=== PATIENT | female | born 1940 | race Caucasian/White ===

== ENCOUNTER → 2024-11-12 11:24 | Outpatient (REF) | payer OTHER, MEDICARE, SELFPAY ==
[2024-11-12 13:04] LABS: % Basophils 0.4 % (0-2); % Eosinophils 1.6 % (0-6); % Immature Granulocytes 0.7 % (0-0.5); % Lymphocytes 15.8 % (20.5-51.1); % Monocytes 7.6 % (1.7-9.3); % Neutrophils 73.9 % (42.2-75.2); Absolute Eosinophils 0.1 10^3/uL (0-0.7); Absolute Lymphocytes 0.9 10^3/uL (1.2-3.4); Absolute Monocytes 0.4 10^3/uL (0.1-0.6); Absolute Neutrophils 4.2 10^3/uL (1.4-6.5); Hematocrit 22.4 % (37.0-47.0); Hemoglobin 7.4 g/dL (12.0-16.0); Mean Corpuscular Hgb 33.5 pg (27.0-31.0); Mean Corpuscular Volume 101.4 fL (81.0-99.0); Mean Platelet Volume 9.6 fL (7.4-10.4); Nucleated Red Blood Cells % 0 %; Platelet Count 247 10^3/uL (130-400); Red Blood Cell Count 2.21 10^6/uL (4.20-5.40); Red Cell Dist. Width 21.2 % (11.5-14.5); White Blood Cell Count 5.7 10^3/uL (4.8-10.8)
[2024-11-12 13:05] LABS: ALT (SGPT) 15 U/L (0-35); AST (SGOT) 28 U/L (14-36); Alkaline Phosphatase 128 U/L (38-126); Blood Urea Nitrogen 14 mg/dl (7-17); Calcium 9.3 mg/dl (8.4-10.2); Carbon Dioxide 24 mmol/L (22-30); Chloride 101 mmol/L (98-107); Glucose 97 mg/dl (70-99); Magnesium 1.7 mg/dl (1.6-2.3); Potassium 4.1 mmol/L (3.5-5.1); Sodium 132 mmol/L (135-145); Total Bilirubin 1.2 mg/dl (0.2-1.3); Total Protein 5.7 g/dl (6.3-8.2); eGFR 55.55
[2024-11-12 13:19] LABS: Free T4 0.93 ng/dl (0.78-2.19)
[2024-11-12 13:32] LABS: TSH 8.12 uIU/ml (0.47-4.68)
== END ==
LOC: OLABN 11:24
PROVIDERS: ATTENDING PHYSICIAN Student in an Organized Health Care Education/Training Program
DX: E03.9 Hypothyroidism, unspecified (principal); N18.31 Chronic kidney disease, stage 3a; Z79.899 Other long term (current) drug therapy; I10 Essential (primary) hypertension; D64.9 Anemia, unspecified
CPT/HCPCS: 36415; 80053; 83735; 84439; 84443; 85025

== ENCOUNTER → 2024-11-17 11:27 | Outpatient (REF) | payer OTHER, MEDICARE, SELFPAY ==
[2024-11-17 12:12] LABS: % Basophils 0.4 % (0-2); % Eosinophils 0.7 % (0-6); % Immature Granulocytes 0.7 % (0-0.5); % Lymphocytes 22.8 % (20.5-51.1); % Monocytes 10.2 % (1.7-9.3); % Neutrophils 65.2 % (42.2-75.2); Absolute Lymphocytes 1.3 10^3/uL (1.2-3.4); Absolute Monocytes 0.6 10^3/uL (0.1-0.6); Absolute Neutrophils 3.7 10^3/uL (1.4-6.5); Hematocrit 21.3 % (37.0-47.0); Hemoglobin 7.2 g/dL (12.0-16.0); Mean Corp Hgb Conc. 33.8 g/dL (33.0-37.0); Mean Corpuscular Hgb 33.5 pg (27.0-31.0); Mean Corpuscular Volume 99.1 fL (81.0-99.0); Mean Platelet Volume 9.7 fL (7.4-10.4); Nucleated Red Blood Cells % 0 %; Platelet Count 248 10^3/uL (130-400); Red Blood Cell Count 2.15 10^6/uL (4.20-5.40); Red Cell Dist. Width 21.2 % (11.5-14.5); White Blood Cell Count 5.7 10^3/uL (4.8-10.8)
[2024-11-17 12:30] LABS: ALT (SGPT) 14 U/L (0-35); AST (SGOT) 25 U/L (14-36); Albumin 3.4 g/dl (3.5-5.0); Alkaline Phosphatase 138 U/L (38-126); Blood Urea Nitrogen 24 mg/dl (7-17); Calcium 9.1 mg/dl (8.4-10.2); Carbon Dioxide 22 mmol/L (22-30); Chloride 103 mmol/L (98-107); Glucose 98 mg/dl (70-99); Potassium 4.6 mmol/L (3.5-5.1); Sodium 132 mmol/L (135-145); Total Bilirubin 1.1 mg/dl (0.2-1.3); Total Protein 6.4 g/dl (6.3-8.2); eGFR 49.55
== END ==
LOC: OLABN 11:27
PROVIDERS: ATTENDING PHYSICIAN Student in an Organized Health Care Education/Training Program
DX: S08.12 Partial traumatic amputation of ear (principal)
CPT/HCPCS: 36415; 80053; 85025

== ENCOUNTER → 2024-11-27 08:59 | Outpatient (REF) | payer OTHER, MEDICARE, SELFPAY ==
[2024-11-28 23:49] LABS: CA 27-29 759.8 U/mL (<=39.0)
[2024-11-29 02:18] LABS: CA 15-3 Breast Antigens 206 U/mL (0-31)
== END ==
LOC: OLABN 08:59
PROVIDERS: ATTENDING PHYSICIAN Student in an Organized Health Care Education/Training Program
DX: C50.812 Malignant neoplasm of overlapping sites of left female breast (principal)
CPT/HCPCS: 36415; 86300

== ENCOUNTER 2024-12-08 15:36 | Emergency (ER) | payer MEDICARE, OTHER, SELFPAY ==
[2024-12-08] VITALS (18 sets, daily range): BP systolic 107–141; BP diastolic 55–74; BMI 27.5
--- NOTE | 2024-12-08 15:41 | ED.GENMED ---
History of Present Illness
General
Chief Complaint: Abnormal Lab Value
Time Seen by Provider: 12/08/24 15:40
History of Present Illness
History of Present Illness:
TIME OF INITIAL ENCOUNTER: 3:40 PM
HPI:
The patient came in by [facility] from [facility]. She had a 'low hemoglobin'. She reportedly was just at [place]. The patient thought that she was going back to [place] however EMS tells us that staff at [facility] said that
they wanted her to go to [place]. She feels weak but has no other specific complaints. No shortness of breath. She denies any GI bleeding. She has an ileostomy.
EXAM:
GENERAL: The patient appears generally weak and debilitated
HEENT: Moist oral mucosa
CARDIOVASCULAR: No murmurs, normal heart rate, regular rhythm, No chest wall tenderness
PULMONARY: No respiratory distress, breath sounds are clear and equal
ABDOMEN: Soft with no peritoneal signs, no tenderness, ileostomy present, heme-negative loose brown stool
NEUROLOGIC: Fair strength all extremities, no coordination deficits
PSYCHIATRIC: Some mild cognitive deficits noted, reasonable insight and judgment
EXTREMITIES: Nontender, no edema, moves all extremities equally
SKIN: Scattered areas of ecchymosis, there is also a slowly healing wound over the central abdomen
NUMBER AND COMPLEXITY OF PROBLEMS ADDRESSED AT THE ENCOUNTER
� Chronic conditions affecting care: Breast cancer, hyperlipidemia, thrombocytopenia
� Acute Exacerbation and/or Progression of Chronic Illness: This is an acute problem
� Differential Diagnosis includes: Anemia, blood loss anemia, iron deficiency anemia
AMOUNT AND/OR COMPLEXITY OF DATA TO BE REVIEWED AND ANALYZED
� I performed an independent evaluation of and my interpretation is:
EKG:
CT:
X-rays:
Laboratory Studies: Hemoglobin is 7.1, iron is 60, ferritin is high
Other:
� Review of other/old records: No old records available for review in [facility]
� Clinical information was obtained by an independent historian: I spoke to PMD and son over the phone
� Prescriptions/Medications Considered but not given:
� Further testing considered but not performed:
RISK OF COMPLICATIONS AND/OR MORBIDITY OR MORTALITY OF PATIENT MANAGEMENT
� Social determinants of health affecting care:
� Discussion with other providers: I did obtain verbal consent from the son for blood transfusion over the phone. I also discussed case with Dr. Mitchel Valadez.
� Escalation of care including admission/observation vs risk of discharge considered: Plan initially was to give a unit of blood and discharge however she had very difficult IV access. IV team was involved, the nurse tried
ultrasound-guided access. I tried access to both EJ's and both lines blue. A right femoral vein access was attempted however the right femoral artery. Ultrasound access was obtained using left femoral vein but also required multiple times. Will
plan to give 2 units of blood and then discharged back to [facility].
ANY OTHER UPDATES:
Phy Exam
Physical Exam
Physical Exam:
See HPI
Course
Orders/Labs/Results
Orders:
Orders
12/08/24 16:34
ABO2 Urgent
BBK Wristband Number:
Associate notified that ABO2 has been ordered: CHANGED TS TO ABO2
Date: 12/08/24
Time: 17:05
Cloth Shearer ID: [id number]
Complete Blood Count/With Diff Urgent
Comprehensive Metabolic Panel Urgent
Ferritin Urgent
Iron Urgent
Total Iron Binding Urgent
12/08/24 17:00
* Blood Bank Products Urgent
Blood Bank Products: *Packed RBC Leuko(PRBC's)
Quantity: 1
Transfuse Today: Yes
Reason: Anemia
12/08/24 17:23
Type+Screen Urgent
BBK Wristband Number:
12/08/24 21:37
* Blood Bank Products Urgent
Blood Bank Products: *Packed RBC Leuko(PRBC's)
Quantity: 1
Transfuse Today: Yes
Reason: Anemia
Abnormal Lab Results
12/08/24 12/08/24
16:34 17:23
RBC 2.29 L 10^6/uL
(4.20-5.40)
Hgb 7.1 L g/dL
(12.0-16.0)
Hct 23.0 L %
(37.0-47.0)
MCV 100.4 H fL
(81.0-99.0)
MCHC 30.9 L g/dL
(33.0-37.0)
RDW 19.4 H %
(11.5-14.5)
Abs Immat Gran (auto) 0.1 H 10^3/uL
(0-0.05)
Absolute Lymphs (auto) 1.0 L 10^3/uL
(1.2-3.4)
Absolute Monos (auto) 0.7 H 10^3/uL
(0.1-0.6)
Immature Gran % 1.7 H %
(0-0.5)
Lymphocytes % 17.4 L %
(20.5-51.1)
Monocytes % 12.1 H %
(1.7-9.3)
Sodium 133 L mmol/L
(135-145)
Chloride 108 H mmol/L
(98-107)
Carbon Dioxide 15 L mmol/L
(22-30)
BUN 26 H mg/dl
(7-17)
Glucose 103 H mg/dl
(70-99)
TIBC 258 L ug/dl
(265-497)
Ferritin 2970.0 H ng/ml
(11.1-264.0)
Alkaline Phosphatase 252 H U/L
(38-126)
Albumin 3.1 L g/dl
(3.5-5.0)
Crossmatch IS Only See Detail
12/08/24 16:34
12/08/24 16:34
Vital Signs
Initial and Last Documented VS:
Initial Vital Signs
Temp Pulse Resp BP Pulse Ox
36.7 C 79 24 107/55 98
12/08/24 15:43 12/08/24 15:43 12/08/24 15:43 12/08/24 15:43 12/08/24 15:43
Last Documented Vital Signs
Temp Pulse Resp BP Pulse Ox
36.7 C 73 17 124/72 93
12/08/24 23:52 12/09/24 00:00 12/09/24 00:00 12/09/24 00:00 12/08/24 23:52
Procedures
Central Line
Left Femoral:
Indication for procedure:: Poor IV access needs blood, I did speak to son earlier who gave blood conse
Procedure completed by: Me, Dr. Alejo
Consent form signed: No
If no, reason: Emergency procedure
Central line lumen: triple
Number of attempts: 3
Sterile dressing applied?: Yes
Additional information:
Right femoral vein was also attempted but this failed initially.
*Critical Care Note
Total Time (30-74mins, 75-104mins- exclusive of procedures): Not Applicable
ED Attending Note
-
Portions of this chart may have been created with voice recognition software.� Occasional wrong word or��sound alike� substitutions may have occurred due to the inherent limitations of voice recognition software.
Discharge Plan
Departure
Patient Disposition: Home (Routine Discharge)
Date of Disposition: 12/08/24
Time of Disposition: 18:30
Patient with high blood pressure during this ER visit?: Yes
Discharge Problem:
Anemia
Referrals:
Mitchel Valadez DO [Family Provider] -
Activity Restrictions/Additional Instructions:
I did speak to Dr. Mitchel Valadez about the care. He agrees with getting a unit of blood. There is no sign of blood in your stool from your ileostomy bag. Return here if worse or other concerns.
Interventions
Interventions:
*Risk Screen - Suicide Last Done: 12/08/24 15:43
*General Assessment Last Done: 12/08/24 15:43
*Neglect/Abuse Screening Last Done: 12/08/24 15:43
*ED- Fall Risk Assessment Last Done: 12/08/24 15:43
*ED COVID-19 Vaccine History Last Done: 12/09/24 00:44
*Nursing Disposition Last Done: 12/09/24 00:44
Discharge Date and Time
Discharge Date/Time: 12/09/24 00:45
Print Language: MONGOLIAN
[2024-12-08 16:49] LABS: % Basophils 0.2 % (0-2); % Eosinophils 0.3 % (0-6); % Immature Granulocytes 1.7 % (0-0.5); % Lymphocytes 17.4 % (20.5-51.1); % Monocytes 12.1 % (1.7-9.3); % Neutrophils 68.3 % (42.2-75.2); Absolute Immature Granulocytes 0.1 10^3/uL (0-0.05); Absolute Monocytes 0.7 10^3/uL (0.1-0.6); Hemoglobin 7.1 g/dL (12.0-16.0); Mean Corp Hgb Conc. 30.9 g/dL (33.0-37.0); Mean Corpuscular Volume 100.4 fL (81.0-99.0); Mean Platelet Volume 9.3 fL (7.4-10.4); Nucleated Red Blood Cells % 0.3 %; Platelet Count 218 10^3/uL (130-400); Red Blood Cell Count 2.29 10^6/uL (4.20-5.40); Red Cell Dist. Width 19.4 % (11.5-14.5); White Blood Cell Count 5.9 10^3/uL (4.8-10.8)
[2024-12-08 17:29] LABS: ALT (SGPT) 24 U/L (0-35); AST (SGOT) 36 U/L (14-36); Albumin 3.1 g/dl (3.5-5.0); Alkaline Phosphatase 252 U/L (38-126); Blood Urea Nitrogen 26 mg/dl (7-17); Calcium 9.3 mg/dl (8.4-10.2); Carbon Dioxide 15 mmol/L (22-30); Chloride 108 mmol/L (98-107); Estimated Creatinine Clearance 38 ml/min; Glucose 103 mg/dl (70-99); Iron 60 ug/dl (37-170); Potassium 4.6 mmol/L (3.5-5.1); Sodium 133 mmol/L (135-145); Total Bilirubin 0.9 mg/dl (0.2-1.3); Total Protein 6.6 g/dl (6.3-8.2); eGFR 55.55
[2024-12-08 17:50] LABS: Percent Saturation 23 % (20-50); Total Iron Binding Capacity 258 ug/dl (265-497)
--- NOTE | 2024-12-08 21:45 | EDRN ---
Delayed entry.
Previous 22G in R forearm inserted by IV patent prior to sending down white slip to request blood. Shortly after transfusion started skin proximal to site became cool and patient c/o of increased pain. Requested ultrasound access, which also
infiltrated. First attempt for in EJ by Dr. Alejo successful, patient c/o of pain but blood infusing well. This RN checked a few minutes later and line left EJ had infiltrated. Unsuccessful attempt x2 by Dr. Alejo for an EJ. Two
attempts for the right femoral. One successful attempt by Dr. Alejo for a left femoral central line. Pressure applied to both femoral sites. Ice applied to left EJ.
--- NOTE | 2024-12-08 22:28 | EDRN ---
Delayed entry.
Previous 22G in R forearm inserted by IV team patent prior to sending down white slip to request blood. Shortly after transfusion started skin proximal to site became cool and patient c/o of increased pain. Requested ultrasound access, which also
infiltrated. First attempt for in EJ by Dr. Alejo successful, patient c/o of pain but blood infusing well. This RN checked a few minutes later and line left EJ had infiltrated. Unsuccessful attempt x1 by Dr. Alejo for an EJ. Two
attempts for the right femoral. One successful attempt by Dr. Alejo for a left femoral central line. Pressure applied to both femoral sites. Ice applied to left EJ.
[2024-12-09] VITALS: BP 124/72
== END 2024-12-09 00:45 | disposition home or self-care (01) ==
LOC: EMR 15:36
PROVIDERS: EMERGENCY PHYSICIAN Emergency Medicine; FAMILY PHYSICIAN Student in an Organized Health Care Education/Training Program
DX: R53.1 Weakness (principal); D50.9 Iron deficiency anemia, unspecified; R03.0 Elevated blood-pressure reading, without diagnosis of hypertension; E78.5 Hyperlipidemia, unspecified; D69.6 Thrombocytopenia, unspecified; Z93.2 Ileostomy status; Z85.3 Personal history of malignant neoplasm of breast; Z88.1 Allergy status to other antibiotic agents
CPT/HCPCS: 36556; 99285; 36430; 36415; 80053; 82728; 83540; 83550; 85025; 86850; 86900; 86901; 86920; P9016

== ENCOUNTER → 2024-12-11 11:22 | Outpatient (REF) | payer OTHER, MEDICARE, SELFPAY ==
[2024-12-11 12:18] LABS: Hematocrit 23.9 % (37.0-47.0); Hemoglobin 7.7 g/dL (12.0-16.0); Mean Corp Hgb Conc. 32.2 g/dL (33.0-37.0); Mean Corpuscular Hgb 31.2 pg (27.0-31.0); Mean Corpuscular Volume 96.8 fL (81.0-99.0); Mean Platelet Volume 9.9 fL (7.4-10.4); Platelet Count 195 10^3/uL (130-400); Red Blood Cell Count 2.47 10^6/uL (4.20-5.40); Red Cell Dist. Width 17.9 % (11.5-14.5); White Blood Cell Count 5.4 10^3/uL (4.8-10.8)
== END ==
LOC: OLABN 11:22
PROVIDERS: ATTENDING PHYSICIAN Student in an Organized Health Care Education/Training Program
DX: D64.9 Anemia, unspecified (principal)
CPT/HCPCS: 36415; 85027

== ENCOUNTER → 2024-12-18 11:44 | Outpatient (REF) | payer OTHER, MEDICARE, SELFPAY ==
[2024-12-18 12:05] LABS: Hematocrit 21.8 % (37.0-47.0); Hemoglobin 7.1 g/dL (12.0-16.0); Mean Corp Hgb Conc. 32.6 g/dL (33.0-37.0); Mean Corpuscular Volume 98.2 fL (81.0-99.0); Mean Platelet Volume 9.2 fL (7.4-10.4); Platelet Count 254 10^3/uL (130-400); Red Blood Cell Count 2.22 10^6/uL (4.20-5.40); Red Cell Dist. Width 17.5 % (11.5-14.5); White Blood Cell Count 5.9 10^3/uL (4.8-10.8)
== END ==
LOC: OLABN 11:44
PROVIDERS: ATTENDING PHYSICIAN Student in an Organized Health Care Education/Training Program
DX: D64.9 Anemia, unspecified (principal)
CPT/HCPCS: 36415; 85027

== ENCOUNTER 2024-12-20 17:42 | Inpatient (IN) | payer MEDICARE, OTHER, SELFPAY ==
[2024-12-20] VITALS (14 sets, daily range): BP systolic 98–132; BP diastolic 60–81
--- NOTE | 2024-12-20 12:49 | ED.GENMED ---
History of Present Illness
<Monisha Mcdaniels PA-C - Last Filed: 12/20/24 17:24>
General
Chief Complaint: Abnormal Lab Value
Source: patient, family and ambulance crew
Exam Limitations: none
Time Seen by Provider: 12/20/24 12:49
Nursing documentation reviewed up to this point in time: agreed with
History of Present Illness
History of Present Illness:
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
which is her nursing facility for evaluation of anemia. Patient reports that she had blood work drawn this morning and that it resulted with a hemoglobin of 6.6 therefore the patient was sent to the emergency department for a blood transfusion.
Patient and her peampxov-ys-vay report that the patient has been dealing with anemia and has required blood transfusions with the last being here at [facility] in the emergency department [place] approximately 2 weeks ago. Patient reports
that she is fatigued and deconditioned. Patient denies any bleeding from anywhere that she is aware of. Patient denies any chest pain, shortness of breath, abdominal pain, vomiting. Patient reports that the stool in her bag has been brown.
Past History
<Monisha Mcdaniels PA-C - Last Filed: 12/20/24 17:24>
Past History
ED Past Medical History: Cancer, CVA, GERD, Hypercholesterolemia, Hypothyroidism and Other (anemia)
ED Past Surgical History: Bowel resection (with ileostomy)
Social History
Tobacco: Non-smoker
Alcohol: None
Drug: None
Review of Systems
<Monisha Mcdaniels PA-C - Last Filed: 12/20/24 17:24>
Review of Systems
Allergies reviewed?: Yes
All Other Systems: ROS reviewed and negative except as documented in HPI and ROS
Constitutional: Reports fatigue; Denies fever
EENT: Reports no symptoms
Respiratory: Reports no symptoms
Cardiac: Reports no symptoms
ABD/GI: Reports no symptoms
: Reports no symptoms
Musculoskeletal: Reports no symptoms
Skin: Reports no symptoms
Neurological: Reports no symptoms
Endocrine: Reports no symptoms
Hematologic/Lymphatic: Reports no symptoms
Psychiatric: Reports no symptoms
Phy Exam
<Monisha Mcdaniels PA-C - Last Filed: 12/20/24 17:24>
General Physical Exam
General Presentation: well appearing and no apparent distress
General Skin: warm and dry
General Habitus: normal
General Mental: alert
General Hydration: appears well hydrated
ENT Exam
ENT Exam: EOMI, pharynx normal, neck supple and normocephalic
Eye Exam
Eye Exam: PERRL, cornea clear and conjunctiva normal
Cardiovascular Exam
Cardiovascular Exam: regular rate/rhythm, no edema, no murmur and normal peripheral pulses
Pulmonary Exam
Pulmonary Exam: lungs clear, no respiratory distress, no rales, no crackles, no rhonchi, no stridor, no wheezing and no cough
Gastrointestinal Exam
Gastrointestinal Exam: normal bowel sounds, non tender, soft, no organomegaly, no pulsatile mass and non distended
External Findings: ileostomy (with brown-black stool and bright red blood which is heme occult positive)
Neurological Exam
Neurological Exam: alert, oriented x3, no motor deficits and speech normal
Musculoskeletal Exam
Musculoskeletal Exam: full ROM and no edema
Skin Exam
Skin Exam: normal color, warm/dry, no rash and no petechia
Psychiatric Exam
Psychiatric Exam: normal mood/affect
Course
<Monisha Mcdaniels PA-C - Last Filed: 12/20/24 17:24>
Orders/Labs/Results
Orders:
Orders
12/20/24 Breakfast
Clear Liquid
At Your Request: Full Participation
12/20/24 12:56
Type And Crossmatch [Type+Screen] Urgent
Complete Blood Count/With Diff Urgent
Comprehensive Metabolic Panel Urgent
PTT Urgent
Prothrombin Time Urgent
12/20/24 15:12
* Blood Bank Products Urgent
Blood Bank Products: *Packed RBC Leuko(PRBC's)
Quantity: 1
Transfuse Today: Yes
Reason: Anemia
12/20/24 16:11
CT Abd/pelvis W Iv Cont Urgent
Comment:
Reason For Exam: anemia,hemicolectomy w/ileostomy, blood in ostomy
12/20/24 16:46
Admit/Transfer Patient As Directed
Co-Sign Provider:
Level of Care: Inpatient admission
Assign to:: Medical/Surgical
Physician / Group: bettina
Diagnosis: GI bleed
Reason for Hospitalization: GI bleed
Expected length of stay greater than two midnights?: Yes
ELOS- Estimated Length of Stay in days: 3
I certify the patient meets the requirements for IP care: Yes
12/20/24 16:47
PRN Pain Medication Management As Directed
May give lesser potent ordered pain med per pt: Yes
preference::
Protocol:: Medication orders for pain may be administered in a
manner that supports deferring to patient preference
when the pt is:
- Requesting an ordered lesser potent pain medication.
Least to most potent pain medications are defined
as: acetaminophen < NSAID < tramadol < opioids
(morphine, oxycodone, hydromorphone).
- Requesting a lesser dose of the same medication IF
ORDERED.
- Requesting a less intrusive route of administration
if both routes are prescribed by the provider (PO <
IV).
12/20/24 16:48
Code Status As Directed
Resuscitation Status: Do not resuscitate
Reached after discussion with pt or family/Healthcare POA: Yes
DNR Bracelet Application ONCE
12/20/24 18:52
Lorazepam [Ativan] 0.5 mg PO HS PRN
12/20/24 18:52
GASTROINTESTINAL CONSULT Routine
Consulting Provider: Lucrecia Mckeon
Was physician already notified: Yes
Activity As Directed
Activity Level: As Tolerated
INT (Intravenous Needle Therapy) As Directed
Comment: Place 2 IV catheters of the largest bore possible until stable
Orthostatic Vital Signs As Directed
Orthostatic VS Frequency: Now
Comment: then every four hours for twenty-four hours
Pneumatic Compression Sleeves As Directed
Type: Thigh high
Vital Signs As Directed
Frequency: Per unit guidelines
DX Deep Vein Thrombosis Video Routine
12/20/24 19:00
H&H Q6H
12/20/24 20:00
Pantoprazole [Protonix IV] 40 mg IV BID
12/21/24 01:00
H&H Q6H
12/21/24 06:00
Basic Metabolic Panel IN AM
Complete Blood Count/No Diff IN AM
Levothyroxine [Synthroid] 88 mcg PO DAILY@0600
12/21/24 07:00
H&H Q6H
12/21/24 08:00
Atorvastatin [Lipitor] 40 mg PO DAILY
Fluoxetine HCl [Prozac] 20 mg PO DAILY
Furosemide [Lasix] 20 mg PO DAILY
Dfxblcavm-Hkw-Xwzh [Femara] 2.5 mg PO DAILY
Vit C/Vit E/Lutein/Min/[place]-3 [Ocuvite Softgel] 1 cap PO DAILY
12/22/24 06:00
Basic Metabolic Panel IN AM
12/23/24 06:00
Basic Metabolic Panel IN AM
12/24/24 06:00
Basic Metabolic Panel IN AM
Abnormal Lab Results
12/20/24
12:56
RBC 2.36 L 10^6/uL
(4.20-5.40)
Hgb 7.4 L g/dL
(12.0-16.0)
Hct 22.4 L %
(37.0-47.0)
MCH 31.4 H pg
(27.0-31.0)
RDW 17.9 H %
(11.5-14.5)
Immature Gran % 0.6 H %
(0-0.5)
Monocytes % 9.8 H %
(1.7-9.3)
PT 15.4 H Sec
(11.4-14.6)
Chloride 109 H mmol/L
(98-107)
BUN 30 H mg/dl
(7-17)
Creatinine 1.1 H mg/dL
(0.6-1.0)
Alkaline Phosphatase 174 H U/L
(38-126)
Albumin 3.1 L g/dl
(3.5-5.0)
Crossmatch IS Only See Detail
12/20/24 12:56
12/20/24 12:56
Vital Signs
Initial and Last Documented VS:
Initial Vital Signs
Temp Pulse Resp BP
36.4 C 69 20 111/70
12/20/24 12:41 12/20/24 12:41 12/20/24 12:41 12/20/24 12:41
Last Documented Vital Signs
Temp Pulse Resp BP Pulse Ox
36.8 C 77 16 123/74 98
12/20/24 18:55 12/20/24 18:55 12/20/24 18:55 12/20/24 18:55 12/20/24 18:55
<Rome Brennan MD - Last Filed: 12/20/24 19:43>
Orders/Labs/Results
Orders:
Orders
12/20/24 Breakfast
Clear Liquid
At Your Request: Full Participation
12/20/24 12:56
Type And Crossmatch [Type+Screen] Urgent
Complete Blood Count/With Diff Urgent
Comprehensive Metabolic Panel Urgent
PTT Urgent
Prothrombin Time Urgent
12/20/24 15:12
* Blood Bank Products Urgent
Blood Bank Products: *Packed RBC Leuko(PRBC's)
Quantity: 1
Transfuse Today: Yes
Reason: Anemia
12/20/24 16:11
CT Abd/pelvis W Iv Cont Urgent
Comment:
Reason For Exam: anemia,hemicolectomy w/ileostomy, blood in ostomy
12/20/24 16:46
Admit/Transfer Patient As Directed
Co-Sign Provider:
Level of Care: Inpatient admission
Assign to:: Medical/Surgical
Physician / Group: bettina
Diagnosis: GI bleed
Reason for Hospitalization: GI bleed
Expected length of stay greater than two midnights?: Yes
ELOS- Estimated Length of Stay in days: 3
I certify the patient meets the requirements for IP care: Yes
12/20/24 16:47
PRN Pain Medication Management As Directed
May give lesser potent ordered pain med per pt: Yes
preference::
Protocol:: Medication orders for pain may be administered in a
manner that supports deferring to patient preference
when the pt is:
- Requesting an ordered lesser potent pain medication.
Least to most potent pain medications are defined
as: acetaminophen < NSAID < tramadol < opioids
(morphine, oxycodone, hydromorphone).
- Requesting a lesser dose of the same medication IF
ORDERED.
- Requesting a less intrusive route of administration
if both routes are prescribed by the provider (PO <
IV).
12/20/24 16:48
Code Status As Directed
Resuscitation Status: Do not resuscitate
Reached after discussion with pt or family/Healthcare POA: Yes
DNR Bracelet Application ONCE
12/20/24 18:52
Lorazepam [Ativan] 0.5 mg PO HS PRN
12/20/24 18:52
GASTROINTESTINAL CONSULT Routine
Consulting Provider: Lucrecia Mckeon
Was physician already notified: Yes
Activity As Directed
Activity Level: As Tolerated
INT (Intravenous Needle Therapy) As Directed
Comment: Place 2 IV catheters of the largest bore possible until stable
Orthostatic Vital Signs As Directed
Orthostatic VS Frequency: Now
Comment: then every four hours for twenty-four hours
Pneumatic Compression Sleeves As Directed
Type: Thigh high
Vital Signs As Directed
Frequency: Per unit guidelines
DX Deep Vein Thrombosis Video Routine
12/20/24 19:00
H&H Q6H
12/20/24 20:00
Pantoprazole [Protonix IV] 40 mg IV BID
12/21/24 01:00
H&H Q6H
12/21/24 06:00
Basic Metabolic Panel IN AM
Complete Blood Count/No Diff IN AM
Levothyroxine [Synthroid] 88 mcg PO DAILY@0600
12/21/24 07:00
H&H Q6H
12/21/24 08:00
Atorvastatin [Lipitor] 40 mg PO DAILY
Fluoxetine HCl [Prozac] 20 mg PO DAILY
Furosemide [Lasix] 20 mg PO DAILY
Pxmrcdpsb-Mkx-Wzxw [Femara] 2.5 mg PO DAILY
Vit C/Vit E/Lutein/Min/[place]-3 [Ocuvite Softgel] 1 cap PO DAILY
12/22/24 06:00
Basic Metabolic Panel IN AM
12/23/24 06:00
Basic Metabolic Panel IN AM
12/24/24 06:00
Basic Metabolic Panel IN AM
Abnormal Lab Results
12/20/24
12:56
RBC 2.36 L 10^6/uL
(4.20-5.40)
Hgb 7.4 L g/dL
(12.0-16.0)
Hct 22.4 L %
(37.0-47.0)
MCH 31.4 H pg
(27.0-31.0)
RDW 17.9 H %
(11.5-14.5)
Immature Gran % 0.6 H %
(0-0.5)
Monocytes % 9.8 H %
(1.7-9.3)
PT 15.4 H Sec
(11.4-14.6)
Chloride 109 H mmol/L
(98-107)
BUN 30 H mg/dl
(7-17)
Creatinine 1.1 H mg/dL
(0.6-1.0)
Alkaline Phosphatase 174 H U/L
(38-126)
Albumin 3.1 L g/dl
(3.5-5.0)
Crossmatch IS Only See Detail
12/20/24 12:56
12/20/24 12:56
Vital Signs
Initial and Last Documented VS:
Initial Vital Signs
Temp Pulse Resp BP
36.4 C 69 20 111/70
12/20/24 12:41 12/20/24 12:41 12/20/24 12:41 12/20/24 12:41
Last Documented Vital Signs
Temp Pulse Resp BP Pulse Ox
36.8 C 77 16 123/74 98
12/20/24 18:55 12/20/24 18:55 12/20/24 18:55 12/20/24 18:55 12/20/24 18:55
<Monisha Mcdaniels PA-C - Last Filed: 12/20/24 17:24>
*Critical Care Note
Total Time (30-74mins, 75-104mins- exclusive of procedures): Not Applicable
<Monisha Mcdaniels PA-C - Last Filed: 12/20/24 17:24>
Update Note
Update Note:
Patient is an 84-year-old female with past medical history as noted including breast cancer with bony metastasis, anemia requiring blood transfusions in the past with the most recent one being approximately 2 weeks ago who presents to the emergency
department for evaluation of an outpatient hemoglobin of 6.6. Patient denies any bleeding from anywhere. On arrival, patient's vital signs are stable, she is afebrile. On exam, patient is pale appearing but is in no acute distress, she does have
an ileostomy with bright red blood in the ostomy bag which is Hemoccult positive. Labs performed here demonstrate a hemoglobin of 7.4. Given the fact that the patient is symptomatic, will give 1 unit of packed red blood cells after obtaining
consent from the patient. Patient will be admitted for further evaluation of her GI bleed as well as trending of her H&H. Patient seen and evaluated by ED attending, will add on a CT scan of the abdomen and pelvis to evaluate further as patient
reportedly previously had a postoperative complication of her hemicolectomy. Will ensure no additional complications. Patient and her tqqaadbe-rx-fqw are aware of the plan and agree. Patient signed out to the hospitalist without complication.
ED Attending Note
<oMnisha Mcdaniels PA-C - Last Filed: 12/20/24 17:24>
-
Portions of this chart may have been created with voice recognition software.� Occasional wrong word or��sound alike� substitutions may have occurred due to the inherent limitations of voice recognition software.
<Rome Brennan MD - Last Filed: 12/20/24 19:43>
ED Attending Note
Patient seen and examined by attending physician: Yes
ED Attending Note:
I have seen and evaluated the patient with a [id number]-ei-rjqt encounter. I have spoken to the advance practicer provider and involved in the medical history, the physical exam, medical decision making.
Evaluation and management service: agree unless noted differently below.
Results interpretation: agree unless noted differently below.
Focused HPI: 84-year-old female presents for GI bleeding and anemia. She had a recent hemicolectomy and has ileostomy. She was admitted at [facility] for this. She had postoperative pelvic hematoma and significant anemia requiring blood
transfusion. She was ultimately discharged and has had intermittent anemia since. Last week was admitted here required transfusion for anemia. She has had weakness and fatigue and started having bright red blood from her ostomy. Came to the ER
again today. She is not on blood thinners.
Physical exam: Awake alert no distress. Vital signs normal. Blood noted in ileostomy bag.
Medical Decision Makin-year-old female presents with bleeding from ileostomy and anemia. Vitals and exam as above. Hemoglobin is 7.4 but given that she is symptomatic and has active bleeding we will transfuse a unit of PRBCs. Admit for
monitoring of bleeding, trending of hemoglobin. Ordered CT to rule out postoperative bleeding although low clinical suspicion without pain and with stable hemodynamics.
Discharge Plan
Departure
Patient Disposition: Admit
Date of Disposition: 12/20/24
Time of Disposition: 16:18
Presentation/result/management discussed w/ accepting MD/DO: Hospitalist
Patient with high blood pressure during this ER visit?: No
Condition: Good
Covid-19: Not Applicable
Discharge Problem:
Symptomatic anemia, GI bleed
Interventions
Interventions:
*Risk Screen - Suicide Last Done: 12/20/24 12:41
*General Assessment Last Done: 12/20/24 12:41
*Neglect/Abuse Screening Last Done: 12/20/24 12:48
*ED- Fall Risk Assessment Last Done: 12/20/24 12:59
*ED COVID-19 Vaccine History Last Done: 12/20/24 12:48
*Nursing Disposition Last Done: 12/20/24 19:11
Discharge Date and Time
Discharge Date/Time: 12/20/24 19:12
[2024-12-20 13:04] LABS: % Basophils 0.4 % (0-2); % Eosinophils 1.2 % (0-6); % Immature Granulocytes 0.6 % (0-0.5); % Lymphocytes 25.2 % (20.5-51.1); % Monocytes 9.8 % (1.7-9.3); % Neutrophils 62.8 % (42.2-75.2); Absolute Eosinophils 0.1 10^3/uL (0-0.7); Absolute Lymphocytes 1.3 10^3/uL (1.2-3.4); Absolute Monocytes 0.5 10^3/uL (0.1-0.6); Absolute Neutrophils 3.2 10^3/uL (1.4-6.5); Hematocrit 22.4 % (37.0-47.0); Hemoglobin 7.4 g/dL (12.0-16.0); Mean Corpuscular Hgb 31.4 pg (27.0-31.0); Mean Corpuscular Volume 94.9 fL (81.0-99.0); Mean Platelet Volume 8.7 fL (7.4-10.4); Nucleated Red Blood Cells % 0 %; Platelet Count 243 10^3/uL (130-400); Red Blood Cell Count 2.36 10^6/uL (4.20-5.40); Red Cell Dist. Width 17.9 % (11.5-14.5); White Blood Cell Count 5.1 10^3/uL (4.8-10.8)
[2024-12-20 13:13] LABS: INR 1.19; PT 15.4 Sec (11.4-14.6)
[2024-12-20 13:14] LABS: APTT 32.6 Sec (23.4-35.0)
[2024-12-20 13:20] LABS: ALT (SGPT) 14 U/L (0-35); AST (SGOT) 31 U/L (14-36); Albumin 3.1 g/dl (3.5-5.0); Alkaline Phosphatase 174 U/L (38-126); Blood Urea Nitrogen 30 mg/dl (7-17); Calcium 9.7 mg/dl (8.4-10.2); Carbon Dioxide 22 mmol/L (22-30); Chloride 109 mmol/L (98-107); Glucose 97 mg/dl (70-99); Potassium 4.4 mmol/L (3.5-5.1); Sodium 136 mmol/L (135-145); Total Bilirubin 0.7 mg/dl (0.2-1.3); Total Protein 6.5 g/dl (6.3-8.2); eGFR 49.55
--- NOTE | 2024-12-20 16:09 | HPS.HSE ---
Addendum entered and electronically signed by Chetna Delvalle DO 12/20/24 17:36:
I saw and examined the patient. I reviewed the patient at length with Marisa, and agree with her history and physical and assessment and plan of care as per below with the addition of holding aspirin for now. Patient is an 84-year-old woman with
past medical history significant for metastatic breast cancer to the bones currently on oral medication, sees an oncologist at [facility], CVA, hyperlipidemia, CKD, autoimmune thyroiditis, history of hemicolectomy with ileostomy, who presents
to the emergency department secondary to a hemoglobin of 6.6 after blood work was drawn this morning. She also has noticed some flecks of bright red blood in her ileostomy bag. 1 unit of packed red blood cells has been ordered in the emergency
department. We are pending a CT scan of the abdomen pelvis as well that was ordered in the ED due to history of pelvic hematoma. The patient is having some low back pain at this time. She has abdominal pain with palpation but otherwise is not
complaining of any abdominal pain no nausea no vomiting. She is complaining of fatigue and deconditioning. She denies shortness of breath. She has history of C. difficile colitis with bowel perforation requiring hemicolectomy with an ileostomy
tube and this was performed at [place]. Since then the oncologist has been modifying her breast cancer oral medications. She is to have an injection.
Vital signs vital signs are stable afebrile
Patient is pale, family says this is baseline
Cardiovascular regular rate and rhythm no murmurs rubs or gallops
Lungs are clear to auscultation related wheeze rales rhonchi
Abdomen is soft no peritoneal signs, there are some flecks of red in the stool in her ileostomy bag
Hemoglobin 7.4 and was 6.6 prior to arrival , prior to blood transfusion MCV 94.9
INR 1.19 creatinine 1.1
Assessment and plan of care
Patient is an 84-year-old woman with past medical history significant for metastatic breast cancer on oral medication, Femara, who presents with concern for upper GI bleed versus lower GI source, positive for blood in the ileostomy bag
-She is hemodynamically stable with stable respiratory status at this time
-CT scan of the abdomen pelvis is pending at this time
- Her hemoglobin has been consistently low in the 7 range
- Will consult gastroenterology
- Keep her on IV PPI daily
- Serial monitoring of her H&H
- Hold aspirin for now
Further plan of care as per below
Original Note:
Family Physician
-
Family Physician: NOT KNOW UNKNOWN - PT DOES
Chief Complaint
-
low hemoglobin
History of Present Illness
84 yo female with PMH of breast cancer, bony metastasis, anemia, not currently anticoagulated, CVA, HLD, CKD, autoimmune thyroiditis, hemicolectomy with colostomy in place, who presents to the emergency department from [facility] which is her
nursing facility for evaluation of anemia. Patient reports that she had blood work drawn this morning and that it resulted with a hemoglobin of 6.6 therefore the patient was sent to the emergency department for a blood transfusion. Patient and her
[id number] report that the patient has been dealing with anemia and has required blood transfusions with the last being here at [facility] in the emergency department a park approximately 2 weeks ago. Patient reports that she is
fatigued and deconditioned. denied sob. denied fever, chills, chest pain, sob. denied abdominal pain,n,v,d. denied any black, red or tarry stool. denied dysuria or hematuria.
upon arrival she was noted to have hgb of 7.4 transfusing with one unit of blood admitting for further managment.
Medical History
Past Medical History
Past Medical History: Reports Other
Additional Past Medical History:
Autoimmune thyroiditis
Postprocedure hematoma
CKD stage IIIa
Thrombocytopenia
Stage IV left breast cancer
Hyperlipidemia
Macular degeneration
Orthostatic hypotension DVT of right lower extremities
Anemia
Anxiety, depression
Hypertension
GERD
Osteoporosis
Osteoarthritis
TIA
Bowel preparation
C. difficile
Past Surgical History: Reports Other
Additional Past Surgical History:
Recent hemicolectomy
Cauterization of hematoma
IVC filter right hip replacement
Social History
Tobacco: Former Smoker
Alcohol: None
Drug: None
Personal: Single
Living: Halfway
Family History
Family History: Not pertinent
Allergies / Home Medications
Allergies reflects when Allergies were last updated in [facility].
Home Medications with original date entered in [facility]
Allergy/Medication List:
Allergies
Allergy/AdvReac Type Severity Reaction Status Date / Time
ciprofloxacin [From Cipro] Allergy Unknown Verified 12/20/24 12:47
Review of Systems
-
Constitutional: Reports Fatigue
EENT: Reports No Symptoms
Respiratory: Reports No Symptoms
Cardiac: Reports No Symptoms
Abdomen/GI: Reports No Symptoms
: Reports No Symptoms
Musculoskeletal: Reports No Symptoms
Skin: Reports No Symptoms
Neurological: Reports Weakness
Endocrine: Reports No Symptoms
Hematologic/Lymphatic: Reports No Symptoms
Psych: Reports No Symptoms
Physical Exam
Vital Signs
Vital Signs
Temp Pulse Resp BP Pulse Ox
97.6 F 70 17 111/70 99
12/20/24 12:41 12/20/24 12:45 12/20/24 12:45 12/20/24 12:42 12/20/24 12:45
Physical Exam
General: Well Developed, Well Nourished and No Apparent Distress
HEENT: NormoCephalic, Moist mucous membranes and Atraumatic
Respiratory: Clear
Cardiac: S1/S2 and Regular Rhythm; No Murmur or Rub
GI: Soft, Non Tender, Non Distended and Normal Bowel Sounds; No Organomegaly
Rectal: Hem Positive and Deferred by Provider
Musculoskeletal: No Clubbing, No Cyanosis and No Edema
Skin: No Rash
Neuro: AO x 3 and Nonfocal/grossly intact
Psych: Calm
Laboratory Results
-
12/20/24 12:56
12/20/24 12:56
Laboratory Results
PT 15.4 Sec (11.4-14.6) H 12/20/24 12:56
INR 1.19 12/20/24 12:56
APTT 32.6 Sec (23.4-35.0) 12/20/24 12:56
Total Bilirubin 0.7 mg/dl (0.2-1.3) 12/20/24 12:56
AST 31 U/L (14-36) 12/20/24 12:56
ALT 14 U/L (0-35) 12/20/24 12:56
Alkaline Phosphatase 174 U/L (38-126) H 12/20/24 12:56
Data Reviewed
-
Lab Data: Labs Reviewed by me
Impression/Plan
-
#symptomatic anemia secondary to GI bleed
# Patient has colostomy bag status post hemicolectomy for bowel perforation
# History of C. difficile
-hgb 7.4, 1 unit PRBCs ordered in ER
-heme positive in ER
-clear liquid diet
-trend hgb
-GI consulted
#hxt of pelvic hematoma as complication of hemicolectomy
-CT abdomen pelvis pending
#breat cancer with bony oscar
- On oral chemo pill letrozole
- Follows [facility]
# Hypothyroidism
-Levothyroxine continued
#CVA
- Aspirin continued
- Atorvastatin continued
# GERD
- PPI continued
# Depression/anxiety
- Fluoxetine continued
- Ativan continued
# Edema
- On Lasix as outpatient
#DVT prophylaxis
- SCDs
# CODE STATUS
- Patient is DNR
--- NOTE | 2024-12-20 20:26 | VATNOTE ---
PT IS ADAMANT THAT SHE HAS NEVER HAD ANY BREAST SURGERY INCLUDING ANY LYMPH NODE DISSECTION. HER ACCOUNT SUPPORTED BY MD Sellers/P. WILL NOT ADD A LIMB RESTRICTION TO HER PLAN OF CARE.
[2024-12-20] MEDS: NSS (PRESERVATIVE FREE) 10 ML IV (21:34)
[2024-12-20] MEDS: PROTONIX IV 40 MG IV (21:34)
[2024-12-20 22:39] LABS: Hemoglobin 8.2 g/dL (12.0-16.0)
[2024-12-21] MEDS: SYNTHROID 88 MCG PO (05:25)
[2024-12-21 05:49] VITALS: BMI 29.7
[2024-12-21 07:11] VITALS: BP 123/64
[2024-12-21 07:37] LABS: Hematocrit 27.4 % (37.0-47.0); Mean Corp Hgb Conc. 32.8 g/dL (33.0-37.0); Mean Corpuscular Hgb 30.9 pg (27.0-31.0); Mean Corpuscular Volume 94.2 fL (81.0-99.0); Mean Platelet Volume 8.8 fL (7.4-10.4); Platelet Count 229 10^3/uL (130-400); Red Blood Cell Count 2.91 10^6/uL (4.20-5.40); Red Cell Dist. Width 18.1 % (11.5-14.5); White Blood Cell Count 5.2 10^3/uL (4.8-10.8)
[2024-12-21 07:38] LABS: Hematocrit 27.4 % (37.0-47.0); Hemoglobin 9.1 g/dL (12.0-16.0)
[2024-12-21 07:58] LABS: Blood Urea Nitrogen 29 mg/dl (7-17); Calcium 9.6 mg/dl (8.4-10.2); Carbon Dioxide 18 mmol/L (22-30); Chloride 109 mmol/L (98-107); Estimated Creatinine Clearance 34 ml/min; Glucose 82 mg/dl (70-99); Potassium 4.4 mmol/L (3.5-5.1); Sodium 136 mmol/L (135-145); eGFR 49.55
--- NOTE | 2024-12-21 09:02 | CON.GI ---
Consultation
-
Date/Time Consultation Requested: 12/20/24
Date/Time Consultation Performed: 12/21/24
Requesting Provider: Marisa Olson
Performing Provider: Rowan Mckeon
Reason for Consultation: Anemia
Medical History
Chief Complaint / HPI
Chief Complaint: Anemia
History of Present Illness:
Rehana Camacho is an 84 y.o. female w/ pmhx breast cancer with mets to bone, history of anemia requiring blood transfusions, CVA, HLD, CKD, hx of severe c.diff w bowel perforation s/p subtotal colectomy and ileostomy, authoimmune thyroiditis who was
sent for evaluation from [facility] for labs showing anemia with a hemoglobin of 6.6. Repeat Hgb upon arrival was 7.4. Of note, she was in the ER 2 weeks ago with a hemoglobin of 7.1 and iron panel not consistent with MARK, transfused with
2units of PRBC and discharged back to [facility]. She denies any melena or hematochezia in her ileostomy bag. She has brown heme positive stool. All of her prior care/surgeries have taken place at [facility]. When asked if shes would want an EGD
or Colonoscopy for a diagnostic workup of her persistent anemia she states she has had this workup in the past, does not wish to proceed with any repeat procedures. Repeat hemoglobin this morning following transfusion was 9.0. CT A/P w/ IV contrast
ordered on arrival, with multiple findings, most notably a 14.5 cm central pelvic hematoma and extensive acute DVTs throughout the IVC and iliac veins located inferior to an IVC filter.
Labs: WBC 5.1, Hgb 7.4, MCV 94, Plt 243
INR 1.19
BUN 30/Cr. 1.1
Tbili 0.7, AST 31, ALT 14, Alk phos 174
CT A/P :
1. LARGE 14.5 cm CENTRAL PELVIC HEMATOMA (loculated circumscribed hemorrhagic fluid collection).
2. EXTENSIVE ACUTE DEEP VENOUS THROMBOSIS throughout the IVC and iliac veins located inferior to an IVC filter.
3. Previous subtotal colectomy with a right anterior abdominal wall ileostomy and oversewn rectum in the pelvis.
4. Moderate to severe chronic bilateral renal disease.
5. Multiple nonobstructing intrarenal calculi.
6. Fusiform infrarenal abdominal aortic aneurysm (2.3 cm diameter).
7. Cholelithiasis.
8. Mild splenomegaly.
9. MULTIFOCAL BLASTIC OSSEOUS METASTATIC DISEASE.
Past Medical History
Past Medical History: Other (breast cancer with mets to bone, MARK, CVA, HLD, CKD, autoimmune thyroiditis)
Past Surgical History: Other (Hysterectomy, subtotal colectomy)
Social History
Tobacco: Former Smoker
Alcohol: None
Drug: None
Personal: Single
Living: Long Term
Family History
Family History: Reviewed & Not Pertinent
Allergies / Home Medications
Allergy/AdvReac Type Severity Reaction Status Date / Time
ciprofloxacin [From Cipro] Allergy Unknown Verified 12/20/24 12:47
�Medication �Instructions �Recorded
Magic Mouthwash 10 ml PO DAILYPRN PRN thrush 12/20/24
acetaminophen 325 mg tablet 650 mg PO Q4H PRN mild 12/20/24
(Tylenol) pain/fever>100.4
aspirin 81 mg tablet,delayed 81 mg PO DAILY Blood Clot 12/20/24
release Prevention/Tx
atorvastatin 40 mg tablet 40 mg PO QPM High Cholesterol 12/20/24
bisacodyl 10 mg rectal suppository 10 mg [place] DAILY PRN constipation 12/20/24
cholecalciferol (vitamin D3) 50 50 mcg PO DAILY Supplement 12/20/24
mcg (2,000 unit) tablet (Vitamin
D3)
cranberry fruit 450 mg tablet 450 mg PO DAILY Supplement 12/20/24
(cranberry)
cyanocobalamin (vitamin B-12) 1,000 mcg PO DAILY Supplement 12/20/24
1,000 mcg tablet,extended release
(Vitamin B-12 ER)
famotidine 20 mg tablet 20 mg PO BID Gastrointestinal Issue 12/20/24
fluoxetine 20 mg capsule 20 mg PO DAILY Mental 12/20/24
Health/Anxiety
folic acid 1 mg tablet 1 mg PO DAILY Supplement 12/20/24
furosemide 20 mg tablet 10 mg PO DAILY Fluid 12/20/24
Retention/Swelling
letrozole 2.5 mg tablet (Femara) 2.5 mg PO DAILY Cancer 12/20/24
levothyroxine 88 mcg tablet 88 mcg PO DAILY Thyroid 12/20/24
lorazepam 0.5 mg tablet (Ativan) 0.5 mg PO HS PRN sleep 12/20/24
magnesium hydroxide 400 mg/5 mL 2,400 mg PO HSPRN PRN constipation 12/20/24
oral suspension (Milk of Magnesia)
mv-mn-folic 200 mcg-vit K 15 1 cap PO BID Supplement 12/20/24
mcg-lutein 5 mg-zeaxanthin 1 mg
capsule (PreserVision AREDS 2 Plus
Multivit)
ondansetron HCl 4 mg tablet 4 mg PO Q6H PRN nausea 12/20/24
Review of Systems
-
History Source: Patient and Physician
All other systems: A 12 pt ROS was Negative except as stated above in HPI
Vital Signs
Temp Pulse Resp BP Pulse Ox
98.0 F 69 14 123/64 100
12/21/24 07:11 12/21/24 07:11 12/21/24 07:11 12/21/24 07:11 12/21/24 07:11
Physical Exam
Exam
GENERAL: Appears in no acute distress, weak and deconditioned
ABDOMEN: +BS; soft, non-tender and non-distended; +ileostomy in place; brown/green liquid stool
Results
WBC 5.2 10^3/uL (4.8-10.8) 12/21/24 06:09
Hgb 9.0 g/dL (12.0-16.0) L 12/21/24 06:09
Hgb 9.1 g/dL (12.0-16.0) L 12/21/24 06:09
Hct 27.4 % (37.0-47.0) L 12/21/24 06:09
Hct 27.4 % (37.0-47.0) L 12/21/24 06:09
MCV 94.2 fL (81.0-99.0) 12/21/24 06:09
Plt Count 229 10^3/uL (130-400) 12/21/24 06:09
Absolute Neuts (auto) 3.2 10^3/uL (1.4-6.5) 12/20/24 12:56
PT 15.4 Sec (11.4-14.6) H 12/20/24 12:56
INR 1.19 12/20/24 12:56
APTT 32.6 Sec (23.4-35.0) 12/20/24 12:56
Sodium 136 mmol/L (135-145) 12/21/24 06:09
Potassium 4.4 mmol/L (3.5-5.1) 12/21/24 06:09
Chloride 109 mmol/L (98-107) H 12/21/24 06:09
Carbon Dioxide 18 mmol/L (22-30) L 12/21/24 06:09
BUN 29 mg/dl (7-17) H 12/21/24 06:09
Creatinine 1.1 mg/dL (0.6-1.0) H 12/21/24 06:09
Calcium 9.6 mg/dl (8.4-10.2) 12/21/24 06:09
Total Bilirubin 0.7 mg/dl (0.2-1.3) 12/20/24 12:56
AST 31 U/L (14-36) 12/20/24 12:56
ALT 14 U/L (0-35) 12/20/24 12:56
Alkaline Phosphatase 174 U/L (38-126) H 12/20/24 12:56
Diagnostic Image Results:
Prior GI Procedures:
EGD:
Colonoscopy:
Assessment / Plan
-
84 y.o. female w/ pmhx breast cancer with mets to bone, history of anemia requiring blood transfusions, CVA, HLD, CKD, hx of severe c.diff w bowel perforation s/p subtotal colectomy and ileostomy, autoimmune thyroiditis who was sent for evaluation
from [facility] for recurrent anemia and concern for active GI bleeding, CT scan obtained showing large pelvic hematoma.
#Hx MARK requiring blood transfusions
#Hx severe c.diff infection c/b bowel perforation s/p subtotal colectomy and ileostomy
Per records reports of 'flecks of blood in ileostomy bag.' On exam, no evidence of bleeding in ileostomy bag, she has brown/greenish colored stool. Suspect anemia is 2/2 very large pelvic hematoma. Given these findings, GI will sign off. If there is
concern for brisk/active GI bleeding, please call GI back. When I discussed the potential of any diagnostic procedures with her, she declined. Will be happy to revisit this with patient and family if there is objective evidence of GI bleeding, but
would favor her large hematoma as source of her anemia. Recommend IR consultation.
Data Reviewed
-
CT Scan: Report Reviewed by me
-
-
Thank you for consultation and allowing me to participate in the patient's care. Please call the radiation engineer GI physician during the after hours with any questions or concerns.
[2024-12-21] MEDS: PROZAC 20 MG PO (09:15)
[2024-12-21] MEDS: PROTONIX IV 40 MG IV ×2 (09:15→19:40)
[2024-12-21] MEDS: OCUVITE SOFTGEL 1 CAP PO (09:15)
[2024-12-21] MEDS: LIPITOR 40 MG PO (09:15)
[2024-12-21] MEDS: FEMARA 2.5 MG PO (09:15)
[2024-12-21] MEDS: LASIX 20 MG PO (09:15)
[2024-12-21] MEDS: NSS (PRESERVATIVE FREE) 10 ML IV ×2 (09:15→19:39)
[2024-12-21] MEDS: FLUSH (NSS) 2 FLUSH IV (09:18)
--- NOTE | 2024-12-21 09:35 | W.PN.HOSP.TC ---
Addendum entered and electronically signed by Nate Ovalle DO 12/21/24 13:35:
I met with the patient again and family at the bedside.
Went over the details of her current hospital course.
We discussed the potential for further evaluation with endoscopy to look for other sources of bleed such as GI bleeding.
Patient and family would like to speak with GI service. Sent [place] text to GI attending.
Patient would like to stay in the hospital and get further workup. Family in agreement. Monitor hemoglobin.
Updated nursing and case management.
I requested records from [facility].
Addendum entered and electronically signed by Nate Ovalle DO 12/21/24 09:52:
Spoke with patient's son Aubrey on the phone. He will be coming in this morning to speak with his mother. All questions answered.
Original Note:
Today's Communication/Plan
-
Discharge
Assessment / Plan
Assessment / Plan
Gen-AAOx3, NAD
HEENT-NC, AT, anicteric, clear oral mm
Neck-supple
CV-reg, no M, +S1/S2
Lungs-clear B/L
Abd-soft, NT, ND
Ext-no edema
Musculoskeletal-no cyanosis, clubbing
Skin-warm and dry
Neuro-grossly non-focal
Psych-calm, cooperative
Symptomatic acute on chronic anemia -presumed acute on chronic blood loss anemia.
Etiology of anemia likely multifactorial including possible GI bleed, pelvic hematoma, etc. CT abdomen and pelvis reviewed showing large 14.5 cm central pelvic hematoma, suspect chronic. Based on ER notes, she had a postoperative pelvic hematoma
after her recent colon resection.
Hemoglobin improved to 9.0 this morning after 1 unit of blood. She was transfused 2 units of blood on December 08 as well.
Moving forward, patient requesting conservative management. Does not want endoscopic evaluation. Discussed with GI service. Hemodynamically stable.
Patient [facility]. I left a voicemail for her son to call me back.
Extensive lower extremity DVT -involving IVC and iliac veins inferior to the IVC filter.
History of stroke
Hyperlipidemia
Metastatic breast cancer
DNR
[facility] -back to [facility] today. Left a voicemail for patient's son to call me back.
Anticipated Discharge: Today
Subjective/Interval History
-
Date of Service: December 21, 2024
Patient seen and examined. No complaints. Requesting discharge.
Objective Data
-
Labs:
Laboratory Results
12/20/24 12/21/24 12/21/24
22:26 06:09 06:09
WBC 5.2
Hgb 8.2 L 9.1 L 9.0 L
Hct 25.0 L 27.4 L
Plt Count
Sodium
Potassium
Chloride
Carbon Dioxide
BUN
Creatinine
Glucose
Calcium
12/21/24
06:09
WBC
Hgb
Hct 27.4 L
Plt Count 229
Sodium 136
Potassium 4.4
Chloride 109 H
Carbon Dioxide 18 L
BUN 29 H
Creatinine 1.1 H
Glucose 82
Calcium 9.6
Vital Signs:
Vital Signs
Temp Pulse Resp BP Pulse Ox
98.0 F 69 14 123/64 100
12/21/24 07:11 12/21/24 07:11 12/21/24 07:11 12/21/24 07:11 12/21/24 07:11
I&O
12/20/24 12/21/24 12/22/24
06:59 06:59 06:59
Intake Total 450 / 450
Output Total 550 / 550
Balance -100 / -100
Review of Systems
-
History Source: Patient
All other systems: Reviewed and negative
--- NOTE | 2024-12-21 09:46 | W.DS.TRANS ---
DC Summary - Tire Repairer
-
Discharge Instructions:
Discharge Diagnosis/Procedures Symptomatic anemia, pelvic hematoma
Diet Regular
Activity As tolerated
Driving Restrictions No driving
Bathing Restrictions None
Blood Work CBC next week
Instructions:
Stand-Alone Forms:
Changes to Home Medications: No
Discharge Medications:
DC Medications w/original date entered in [facility]
Magic Mouthwash 10 ml PO DAILYPRN PRN thrush 12/20/24
acetaminophen 325 mg tablet (Tylenol) 650 mg PO Q4H PRN mild pain/fever>100.4 12/20/24
aspirin 81 mg tablet,delayed release 81 mg PO DAILY Blood Clot Prevention/Tx 12/20/24
atorvastatin 40 mg tablet 40 mg PO QPM High Cholesterol 12/20/24
bisacodyl 10 mg rectal suppository 10 mg [place] DAILY PRN constipation 12/20/24
cholecalciferol (vitamin D3) 50 mcg (2,000 unit) tablet (Vitamin D3) 50 mcg PO DAILY Supplement 12/20/24
cranberry fruit 450 mg tablet (cranberry) 450 mg PO DAILY Supplement 12/20/24
cyanocobalamin (vitamin B-12) 1,000 mcg tablet,extended release (Vitamin B-12 ER) 1,000 mcg PO DAILY Supplement 12/20/24
famotidine 20 mg tablet 20 mg PO BID Gastrointestinal Issue 12/20/24
fluoxetine 20 mg capsule 20 mg PO DAILY Mental Health/Anxiety 12/20/24
folic acid 1 mg tablet 1 mg PO DAILY Supplement 12/20/24
furosemide 20 mg tablet 10 mg PO DAILY Fluid Retention/Swelling 12/20/24
letrozole 2.5 mg tablet (Femara) 2.5 mg PO DAILY Cancer 12/20/24
levothyroxine 88 mcg tablet 88 mcg PO DAILY Thyroid 12/20/24
lorazepam 0.5 mg tablet (Ativan) 0.5 mg PO HS PRN sleep 12/20/24
magnesium hydroxide 400 mg/5 mL oral suspension (Milk of Magnesia) 2,400 mg PO HSPRN PRN constipation 12/20/24
mv-mn-folic 200 mcg-vit K 15 mcg-lutein 5 mg-zeaxanthin 1 mg capsule (PreserVision AREDS 2 Plus Multivit) 1 cap PO BID Supplement 12/20/24
ondansetron HCl 4 mg tablet 4 mg PO Q6H PRN nausea 12/20/24
Home Medication Changes
Pending Results: No
--- NOTE | 2024-12-21 14:34 | W.PN.UPDATE ---
Update Note
Progress Note Update
Asked to speak with patient's family who was at the bedside regarding patient's care. We are still waiting on official records from [facility], where she has received all of her previous care. She follows with Dr. Morrell. The large pelvic
hematoma was a recent finding about 1-2 months ago, and was able to verify that it was approx 15 cm. So finding on CT scan on admission does not appear to be significantly different. The amount of blood lost through her colostomy seems to be a scant
amount, unclear if GI bleeding is the underlying etiology of her ongoing anemia and transfusion requirements. She has a history of anemia but never requiring frequent transfusions. They do report she has a history of hemolytic anemia. We discussed
multiple ways to approach her anemia, watchful waiting and supportive care, schedule regular transfusions and CBCs to avoid frequent readmission or endoscopic evaluation. At this time, following a length conversation explaining the risks/benefits of
EGD and scoping through her stoma to investigate for a cause of her GI bleeding, they have decided to proceed with EGD only. They understand that we may not find a source of her bleeding and are okay with this result. If her hemoglobin is stable
following EGD tomorrow, they are hoping she can be discharged.
--- NOTE | 2024-12-21 15:06 | CM ---
Met with pt/family at bedside
Pt recently discharged from [place] to [facility] short term rehab. Admitted to for GIB
Was working on ambulation at rehab, per pt making some progress
Family requesting to speak with physician
Family reports all docs/specialists at [place]
PCP - Yariel Mcclendon
Pharm - [facility] in [place]
PT/OT consult
Plan - TBD based on pt needs; anticipate SNF
[2024-12-21 15:18] VITALS: BP 105/66
[2024-12-21 18:55] VITALS: BP 101/56
[2024-12-21 23:08] VITALS: BP 107/60
[2024-12-21 23:30] VITALS: BP 125/75
[2024-12-21 23:45] VITALS: BP 113/62; BP 119/60; BP 94/61; PULSE 67; PULSE 71; PULSE 98
[2024-12-22] VITALS (8 sets, daily range): BP systolic 95–134; BP diastolic 57–79; BMI 29.9
[2024-12-22] MEDS: SYNTHROID 88 MCG PO (06:08)
[2024-12-22] MEDS: LIPITOR 40 MG PO (08:46)
[2024-12-22] MEDS: FEMARA 2.5 MG PO (08:46)
[2024-12-22] MEDS: FLUSH (NSS) 1 FLUSH IV (08:46)
[2024-12-22] MEDS: OCUVITE SOFTGEL 1 CAP PO (08:46)
[2024-12-22] MEDS: PROZAC 20 MG PO (08:46)
[2024-12-22] MEDS: NSS (PRESERVATIVE FREE) 10 ML IV (08:46)
[2024-12-22 08:47] LABS: Blood Urea Nitrogen 26 mg/dl (7-17); Calcium 9.3 mg/dl (8.4-10.2); Carbon Dioxide 21 mmol/L (22-30); Chloride 110 mmol/L (98-107); Estimated Creatinine Clearance 35 ml/min; Glucose 85 mg/dl (70-99); Potassium 4.3 mmol/L (3.5-5.1); Sodium 136 mmol/L (135-145); eGFR 49.55
[2024-12-22] MEDS: PROTONIX IV 40 MG IV (08:47)
[2024-12-22] MEDS: LASIX 20 MG PO (08:51)
--- NOTE | 2024-12-22 09:48 | W.PN.HOSP.TC ---
Today's Communication/Plan
-
EGD today
then PT/OT and placement
monitor labs
Assessment / Plan
Assessment / Plan
Assessment:
Symptomatic acute on chronic anemia -presumed acute on chronic blood loss anemia.
- Etiology of anemia likely multifactorial including possible GI bleed, pelvic hematoma, etc. CT abdomen and pelvis reviewed showing large 14.5 cm central pelvic hematoma, suspect chronic. Based on ER notes, she had a postoperative pelvic hematoma
after her recent colon resection.
- Hemoglobin improved to 9.0 as of last CBC check. s/p 1 unit PRBC this hospitalization. She was transfused 2 units of blood on December 08 as well.
- GI following; EGD today.
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
History of stroke
Hyperlipidemia
Metastatic breast cancer
- followed by Dr. Petros Atkins
- on Letrazole
DVT ppx: SCDs
Code: DNR
Anticipated Discharge: 24 - 48 hours
Subjective/Interval History
-
Date of Service: December 22, 2024
resting comfortably, no complaints
Objective Data
-
Labs:
Laboratory Results
12/22/24
06:40
Sodium 136
Potassium 4.3
Chloride 110 H
Carbon Dioxide 21 L
BUN 26 H
Creatinine 1.1 H
Glucose 85
Calcium 9.3
Vital Signs:
Vital Signs
Temp Pulse Resp BP Pulse Ox
97.8 F 66 18 123/75 98
12/22/24 07:15 12/22/24 08:51 12/22/24 07:15 12/22/24 08:51 12/22/24 09:25
I&O
12/21/24 12/22/24 12/23/24
06:59 06:59 06:59
Intake Total 450 / 450 600 / 600
Output Total 550 / 550 875 / 875
Balance -100 / -100 -275 / -275
Physical Exam
-
General: No Apparent Distress
HEENT: Normocephalic and Atraumatic
Respiratory: Negative Wheezes
Cardiac: Regular Rhythm and S1/S2
GI: Soft
Musculoskeletal: No Edema
Neuro: AO x 3
Psych: Calm
Data Reviewed
-
Total Time Spent with Patient (in minutes): 42
Labs: Labs Reviewed by me
--- NOTE | 2024-12-22 13:56 | CM ---
Chart reviewed
For EGD today
PT/OT pending
Spoke with Flora at [facility] - can accept when ready
Plan - anticipate snf when medically ready
--- NOTE | 2024-12-22 16:00 | PTCARENOTE ---
Received pt from PACU s/p EGD. Pt AAOX3. Family at bedside. Call novak within reach.
[2024-12-22] MEDS: NSS (PRESERVATIVE FREE) IV (19:09)
[2024-12-22] MEDS: ATIVAN 0.5 MG PO (20:38)
[2024-12-23] MEDS: SYNTHROID 88 MCG PO (06:05)
[2024-12-23 07:30] VITALS: BP 138/77
[2024-12-23 07:54] LABS: Blood Urea Nitrogen 26 mg/dl (7-17); Calcium 9.5 mg/dl (8.4-10.2); Carbon Dioxide 22 mmol/L (22-30); Chloride 110 mmol/L (98-107); Estimated Creatinine Clearance 38 ml/min; Glucose 86 mg/dl (70-99); Potassium 4.4 mmol/L (3.5-5.1); Sodium 136 mmol/L (135-145); eGFR 55.55
[2024-12-23 07:55] LABS: Hematocrit 24.1 % (37.0-47.0); Hemoglobin 8.2 g/dL (12.0-16.0); Mean Corpuscular Volume 94.1 fL (81.0-99.0); Mean Platelet Volume 8.9 fL (7.4-10.4); Platelet Count 231 10^3/uL (130-400); Red Blood Cell Count 2.56 10^6/uL (4.20-5.40); Red Cell Dist. Width 18.3 % (11.5-14.5); White Blood Cell Count 4.6 10^3/uL (4.8-10.8)
[2024-12-23] MEDS: OCUVITE SOFTGEL 1 CAP PO (09:39)
[2024-12-23] MEDS: LIPITOR 40 MG PO (09:39)
[2024-12-23] MEDS: PROTONIX 40 MG PO (09:39)
[2024-12-23] MEDS: FEMARA 2.5 MG PO (09:39)
[2024-12-23] MEDS: PROZAC 20 MG PO (09:39)
[2024-12-23] MEDS: NSS (PRESERVATIVE FREE) IV (09:40)
[2024-12-23] MEDS: LASIX 20 MG PO (09:40)
[2024-12-23] MEDS: ZOFRAN 4 MG IV (10:27)
--- NOTE | 2024-12-23 11:00 | W.PN.HOSP.TC ---
Today's Communication/Plan
-
stable for DC pending bed/auth etc
Assessment / Plan
Assessment / Plan
Assessment:
Symptomatic acute on chronic anemia -presumed acute on chronic blood loss anemia.
- Etiology of anemia likely multifactorial including possible GI bleed, pelvic hematoma, etc. CT abdomen and pelvis reviewed showing large 14.5 cm central pelvic hematoma, suspect chronic. Based on ER notes, she had a postoperative pelvic hematoma
after her recent colon resection.
- Hemoglobin 8.2 as of last CBC check. s/p 1 unit PRBC this hospitalization. She was transfused 2 units of blood on December 08 as well.
- EGD 12/22: bleb found in esophagus, few gastric polyps, non-bleeding gastric ulcers
- outpatient Hematology referrals for prn transfusions
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
History of stroke
Hyperlipidemia
Metastatic breast cancer
- followed by Dr. Petros Atkins
- on Letrazole
DVT ppx: SCDs
Code: DNR
Dispo: medically stable for DC pending PT/OT/auth
Anticipated Discharge: Within 24 hours
Subjective/Interval History
-
Date of Service: December 23, 2024
s/p EGD yesterday
vomited, small amount with pills intake today; since then no nausea and tolerating diet without abd pain
no other complaints
eager for DC
Objective Data
-
Labs:
Laboratory Results
12/23/24
06:02
WBC 4.6 L
Hgb 8.2 L
Hct 24.1 L
Plt Count 231
Sodium 136
Potassium 4.4
Chloride 110 H
Carbon Dioxide 22
BUN 26 H
Creatinine 1.0
Glucose 86
Calcium 9.5
Vital Signs:
Vital Signs
Temp Pulse Resp BP Pulse Ox
97.6 F 79 18 138/77 99
12/23/24 07:30 12/23/24 07:30 12/23/24 07:30 12/23/24 07:30 12/23/24 07:30
I&O
12/22/24 12/23/24 12/24/24
06:59 06:59 06:59
Intake Total 600 / 600 960 / 960 180 / 180
Output Total 875 / 875 425 / 425 75 / 75
Balance -275 / -275 535 / 535 105 / 105
Physical Exam
-
General: No Apparent Distress
HEENT: Normocephalic and Atraumatic
Respiratory: Negative Wheezes
Cardiac: Regular Rhythm and S1/S2
GI: Soft and Nontender
Genito-urinary: No Costovertebral Tender
Neuro: AO x 3
Psych: Calm
Data Reviewed
-
Total Time Spent with Patient (in minutes): 41
Labs: Labs Reviewed by me
[2024-12-23 13:28] VITALS: BP 108/75; PULSE 93; O2SAT 100
[2024-12-23 13:29] VITALS: BP 108/75; PULSE 94; O2SAT 98
--- NOTE | 2024-12-23 13:49 | W.DS.TRANS ---
DC Summary - [employer]
-
Discharge Instructions:
Discharge Diagnosis/Procedures Symptomatic anemia, pelvic hematoma
Diet Regular
Activity As tolerated
Driving Restrictions No driving
Bathing Restrictions None
Blood Work CBC next week
Other Services PT,OT
Instructions:
Stand-Alone Forms:
Changes to Home Medications: No
Discharge Medications:
DC Medications w/original date entered in [facility]
Magic Mouthwash 10 ml PO DAILYPRN PRN thrush 12/20/24
acetaminophen 325 mg tablet (Tylenol) 650 mg PO Q4H PRN mild pain/fever>100.4 12/20/24
aspirin 81 mg tablet,delayed release 81 mg PO DAILY Blood Clot Prevention/Tx 12/20/24
atorvastatin 40 mg tablet 40 mg PO QPM High Cholesterol 12/20/24
bisacodyl 10 mg rectal suppository 10 mg AK DAILY PRN constipation 12/20/24
cholecalciferol (vitamin D3) 50 mcg (2,000 unit) tablet (Vitamin D3) 50 mcg PO DAILY Supplement 12/20/24
cranberry fruit 450 mg tablet (cranberry) 450 mg PO DAILY Supplement 12/20/24
cyanocobalamin (vitamin B-12) 1,000 mcg tablet,extended release (Vitamin B-12 ER) 1,000 mcg PO DAILY Supplement 12/20/24
famotidine 20 mg tablet 20 mg PO BID Gastrointestinal Issue 12/20/24
fluoxetine 20 mg capsule 20 mg PO DAILY Mental Health/Anxiety 12/20/24
folic acid 1 mg tablet 1 mg PO DAILY Supplement 12/20/24
furosemide 20 mg tablet 10 mg PO DAILY Fluid Retention/Swelling 12/20/24
letrozole 2.5 mg tablet (Femara) 2.5 mg PO DAILY Cancer 12/20/24
levothyroxine 88 mcg tablet 88 mcg PO DAILY Thyroid 12/20/24
magnesium hydroxide 400 mg/5 mL oral suspension (Milk of Magnesia) 2,400 mg PO HSPRN PRN constipation 12/20/24
mv-mn-folic 200 mcg-vit K 15 mcg-lutein 5 mg-zeaxanthin 1 mg capsule (PreserVision AREDS 2 Plus Multivit) 1 cap PO BID Supplement 12/20/24
ondansetron HCl 4 mg tablet 4 mg PO Q6H PRN nausea 12/20/24
ferrous sulfate 325 mg (65 mg iron) tablet 325 mg PO DAILY #100 tabs 12/23/24
lorazepam 0.5 mg tablet (Ativan) 0.5 mg PO HS PRN sleep #5 tabs 12/23/24
pantoprazole 40 mg tablet,delayed release 40 mg PO DAILY #30 tabs 12/23/24
Home Medication Changes
Pending Results: No
Total time spent discharging patient (in min): 41
--- NOTE | 2024-12-23 14:11 | CM ---
Addendum entered by Maya Escobar 12/23/24 14:15:
Updates pts son Aubrey - pt to return to [facility] today at 5PM
Addendum entered by Maya Escobar 12/23/24 14:12:
PT/OT evals completed
Updates sent in [facility]
Transport at 5PM
Updated Mikael at [facility]
Original Note:
Pt for discharge today pend PT/OT eval
Updates sent in [facility] Port to [facility]
Flora and Mikael at [facility] aware of plan - updates provided
Spoke with pt - eager to return to [place]
Plan - anticipate transfer to [facility] pending PT/OT evals
R - [phone]
F - [phone]
[2024-12-23 15:46] VITALS: BP 118/67
== END 2024-12-23 17:40 | DRG 811 ==
LOC: 2 SOUTH 17:42
PROVIDERS: Registered Nurse; ADMITTING PHYSICIAN Internal Medicine; ATTENDING PHYSICIAN Internal Medicine; CONSULT PHYSICIAN Internal Medicine; EMERGENCY PHYSICIAN Emergency Medicine
PROC: 0DJ08ZZ Inspection of Upper Intestinal Tract, Via Natural or Artificial Opening Endoscopic (ICD-10-PCS; 2024-12-22)
DX: D62 Acute posthemorrhagic anemia (principal); K25.4 Chronic or unspecified gastric ulcer with hemorrhage; C79.51 Secondary malignant neoplasm of bone; I82.423 Acute embolism and thrombosis of iliac vein, bilateral; K31.7 Polyp of stomach and duodenum; I12.9 Hypertensive chronic kidney disease with stage 1 through stage 4 chronic kidney disease, or unspecified chronic kidney disease; N18.31 Chronic kidney disease, stage 3a; N94.89 Other specified conditions associated with female genital organs and menstrual cycle; E78.00 Pure hypercholesterolemia, unspecified; M81.0 Age-related osteoporosis without current pathological fracture; Z66 Do not resuscitate; Z79.82 Long term (current) use of aspirin; Z86.73 Personal history of transient ischemic attack (TIA), and cerebral infarction without residual deficits; Z85.3 Personal history of malignant neoplasm of breast
CPT/HCPCS: 36415; 36430; 74177; 80048; 80053; 85014; 85018; 85025; 85027; 85610; 85730; 86850; 86900; 86901; 86920; 87070; 97163; 97167; 99285; P9016; Q9967